=== PATIENT | male | born 1960 | race American Indian/Alaskan Native ===

== ENCOUNTER 2021-01-07 16:41 | Emergency (ER) | payer MEDICARE ==
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
[2021-01-07 18:21] VITALS: BP 173/91
== END 2021-01-07 18:20 | disposition home or self-care (01) ==
LOC: ED 16:41
DX: S16.1XXA Strain of muscle, fascia and tendon at neck level, initial encounter (principal); S39.012A Strain of muscle, fascia and tendon of lower back, initial encounter; S46.912A Strain of unspecified muscle, fascia and tendon at shoulder and upper arm level, left arm, initial encounter; I10 Essential (primary) hypertension; E11.8 Type 2 diabetes mellitus with unspecified complications; Z98.890 Other specified postprocedural states; Z88.0 Allergy status to penicillin; V79.88XA Bus occupant (driver) (passenger) injured in other specified transport accidents, initial encounter; Y92.488 Other paved roadways as the place of occurrence of the external cause; Y93.89 Activity, other specified; Y99.8 Other external cause status
CPT/HCPCS: 99282

== ENCOUNTER 2021-01-19 19:57 | Emergency (ER) | payer MEDICARE ==
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
--- NOTE | 2021-01-19 22:41 | XRay Report ---
Left elbow 4 views INDICATION: Pain FINDINGS: Prominent olecranon spurring. Radial head and neck appear normal. Distal humerus appears no rmal. No joint effusion is seen. No acute fracture. IMPRESSION: Prominent osteophyte and olecranon. No acute fracture. Signer Name: Bob Parks MD Signed: 01/19/2021 10:36 PM Workstation Name: [id number]
--- NOTE | 2021-01-19 23:06 | XRay Report ---
Right foot 3 views INDICATION: Foot pain FINDINGS: MTP joints and IP joints appear intact. Degenerative changes seen throughout. Diffuse soft tissue swelling along the dorsal and plantar aspect of the foot. Calcaneal spurring is noted. Advance d degenerative change of the talus and tibiotalar joint. IMPRESSION: Advanced degenerative change throughout the ankle and foot with diffuse soft tissue swelling. Clinica l correlation with examination and area of pain. Signer Name: Bob Parks MD Signed: 01/19/2021 11:02 PM Workstation Name: [id number]
[2021-01-20 01:09] VITALS: BP 132/70
== END 2021-01-20 01:09 | disposition home or self-care (01) ==
LOC: ED 19:57
DX: S90.32XA Contusion of left foot, initial encounter (principal); S50.02XA Contusion of left elbow, initial encounter; I10 Essential (primary) hypertension; E11.8 Type 2 diabetes mellitus with unspecified complications; E78.5 Hyperlipidemia, unspecified; Z98.890 Other specified postprocedural states; Z88.0 Allergy status to penicillin; V03.90XA Pedestrian on foot injured in collision with car, pick-up truck or van, unspecified whether traffic or nontraffic accident, initial encounter; Y93.01 Activity, walking, marching and hiking; Y92.488 Other paved roadways as the place of occurrence of the external cause; Y99.8 Other external cause status
CPT/HCPCS: 99283

== ENCOUNTER 2021-05-13 12:02 | Emergency (ER) | payer MEDICARE ==
[2021-05-13 12:18] VITALS: BP 136/73
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
== END 2021-05-13 13:17 | disposition home or self-care (01) ==
LOC: ED 12:02
DX: M79.669 Pain in unspecified lower leg (principal); I10 Essential (primary) hypertension; E11.9 Type 2 diabetes mellitus without complications; R56.9 Unspecified convulsions; Z98.890 Other specified postprocedural states
CPT/HCPCS: 99282

== ENCOUNTER 2021-07-16 05:20 | Emergency (ER) | payer MEDICARE ==
[2021-07-16 05:44] VITALS: BP 177/87
--- NOTE | 2021-07-16 10:47 | XRay Report ---
Lumbar spine 3 views INDICATION: Low back pain IMPRESSION: There is severe fracture deformity involving the L1 vertebral body with about 50-60% loss of height anteriorly. Signer Name: Donnie Aburto MD Signed: 07/16/2021 10:43 AM Workstation Name: [id number]
--- NOTE | 2021-07-16 10:55 | Emergency Department Report ---
<GUANAKO LOO - Last Filed: 07/16/21 11:17> ED Back Pain/Injury HPI - General Chief Complaint: Back Pain/Injury Stated Complaint: WORK INJURY BACK/LEG PAIN Time Seen by Provider: 07/16/21 10:10 Source: patient Limitations: No Limitations - History of Present Illness Initial Comments: Patient is a 61-year-old -[place], who looks much older than stated age, that comes to the emergency room complaining of low back pain and painful defecation after falling at work about 9 days ago. He states that he was throwing a heavy trash bag into a dumpster, lost his balance, fell to the ground landing on his knees. He has been njyo-fjr-buuia with his work about seeing the doctor. Today he experienced pain with defecation so he comes to the emergency room. Patient was ambulatory on arrival. He also endorses bilateral leg pain. Patient is known to the [facility], he states he gets medical benefits from them and is on disability due to going to what he calls a [employer]. Complaint: back pain - Related Data Previous Rx's Medication Instructions Recorded Last Taken Type Cyclobenzaprine [Flexeril] 10 mg PO TID PRN #10 07/16/21 Unknown Rx Docusate Sodium [Colace] 100 mg PO BID #30 capsule 07/16/21 Unknown Rx HYDROcodone/APAP 5-325 [[place] 1 - 2 each PO Q6HR PRN #20 tablet 07/16/21 Unknown Rx 5/325] Allergies Allergy/AdvReac Type Severity Reaction Status Date / Time ibuprofen AdvReac Unknown Verified 07/16/21 11:00 Penicillins AdvReac Swelling Verified 01/05/13 22:48 ED Review of Systems Comment: All other systems reviewed and negative ED Past Medical Hx - Past Medical History Previous Medical History?: Yes Hx Hypertension: Yes Hx Diabetes: Yes Hx Seizures: Yes Additional medical history: hyperlipidema - Surgical History Past Surgical History?: Yes Hx Appendectomy: Yes - Family History Family history: no significant - Social History Smoking Status: Never Smoker Substance Use Type: None - Medications Home Medications: Home Medications Medication Instructions Recorded Confirmed Last Taken Type Cyclobenzaprine [Flexeril] 10 mg PO TID PRN #10 07/16/21 Unknown Rx Docusate Sodium [Colace] 100 mg PO BID #30 capsule 07/16/21 Unknown Rx HYDROcodone/APAP 5-325 [[place] 1 - 2 each PO Q6HR PRN #20 tablet 07/16/21 Unknown Rx 5/325] ED Physical Exam - General Limitations: No Limitations General appearance: alert, in no apparent distress - Head Head exam: Present: atraumatic, normocephalic - Eye Eye exam: Present: normal appearance - ENT ENT exam: Present: mucous membranes moist - Neck Neck exam: Present: normal inspection - Respiratory Respiratory exam: Present: normal lung sounds bilaterally. Absent: respiratory distress - Cardiovascular Cardiovascular Exam: Present: regular rate, normal rhythm. Absent: systolic murmur, diastolic murmur, rubs, gallop - GI/Abdominal GI/Abdominal exam: Present: soft, normal bowel sounds - Extremities Exam Extremities exam: Present: other (Ambulatory) - Expanded Back Exam Expanded Back exam: Present: other (Pain on palpation over high lumbar spine) - Neurological Exam Neurological exam: Present: alert, oriented X3 - Psychiatric Psychiatric exam: Present: normal affect, normal mood - Skin Skin exam: Present: warm, dry, intact, normal color. Absent: rash ED Medical Decision Making - Radiology Data Radiology results: report reviewed, image reviewed See imaging notes - Medical Decision Making Vital Signs 07/16/21 05:27 Temperature 98.4 F Pulse Rate 73 Respiratory 18 Rate Blood Pressure 177/87 O2 Sat by Pulse 98 Oximetry Patient was initially seen in [facility]. He had tenderness over his high lumbar spine. I sent him for an x-ray. He has a fracture is noted. I have asked RN to place him on spinal precautions, put him in a stretcher, and I will have Dr. Gonzalez see him. Labs have been ordered. [place] 5 ordered for pain. [address] Gonzalez- he will see pt - Differential Diagnosis Rule out fracture ED Disposition Clinical Impression: Compression fracture of L1 lumbar vertebra Disposition: HOME / SELF CARE / HOMELESS Condition: Stable Instructions: Lumbar Spine Fracture Additional Instructions: Return to the emergency department should you develop worsening symptoms, inability to tolerate food or liquids, high fever or any other concerns Prescriptions: Docusate Sodium [Colace] 100 mg PO BID #30 capsule Cyclobenzaprine [Flexeril] 10 mg PO TID PRN #10 PRN Reason: Muscle Spasm HYDROcodone/APAP 5-325 [[place] 5/325] 1 - 2 each PO Q6HR PRN #20 tablet PRN Reason: Pain Referrals: COLLEEN SAWANT II, MD [Staff Physician] - 3-5 Days (Dr. Sawant is a neurosurgeon. Please follow-up with him for further evaluation) <FARHANJENNIFER Vilma - Last Filed: 07/16/21 13:37> ED Review of Systems ROS: Stated complaint: WORK INJURY BACK/LEG PAIN Other details as noted in HPI ED Course Vital Signs 07/16/21 05:27 Temperature 98.4 F Pulse Rate 73 Respiratory 18 Rate Blood Pressure 177/87 O2 Sat by Pulse 98 Oximetry - Consultations Consultation #1: 07/16/21 13:15 Neurosurgery paged 07/16/21 13:30 Case discussed with neurosurgeon Dr. Sawant-we will have someone contact patient about TLSO brace and have patient follow-up in office. ED Medical Decision Making - Lab Data Result diagrams: 07/16/21 11:23 07/16/21 11:23 Critical care attestation.: If time is entered above; I have spent that time in minutes in the direct care of this critically ill patient, excluding procedure time. ED Disposition Is pt being admited?: No Does the pt Need Aspirin: No Time of Disposition: 13:32
[2021-07-16] MEDS ORDERED: HYDROcodone/ACETAMINOPHEN 5-325 MG TAB PO ONE (11:09)
[2021-07-16 11:44] LABS: Hematocrit 38.3 % (35.5-45.6); Mean Corpuscular HGB Conc 31 % (32-34); Mean Corpuscular Volume 94 fl (84-94); Platelet Count 197 K/mm3 (140-440); Red Blood Count 4.06 M/mm3 (3.65-5.03); Red Cell Distribution Width 15.3 % (13.2-15.2)
[2021-07-16 11:55] LABS: INR 1.07 (0.87-1.13)
[2021-07-16 11:56] LABS: Partial Thromboplastin Time 28.5 Sec. (24.2-36.6)
[2021-07-16 12:03] LABS: Alanine Aminotransferase 10 units/L (7-56); Albumin 4.2 g/dL (3.9-5); BUN/Creatinine Ratio 13; Blood Urea Nitrogen 17 mg/dL (9-20); Calcium 8.6 mg/dL (8.4-10.2); Hemolysis Index 2
--- NOTE | 2021-07-16 12:18 | Cat Scan Report ---
CT cervical spine wo con, CT lumbar spine wo con, CT thoracic spine wo con INDICATION: BACK PAIN AFTER FALL . TECHNIQUE: Axial CT images of the cervical, thoracic, lumbar spine were obtained. Sagittal and coronal reformatt ed images were produced. All CT scans at this location are performed using CT dose reduction for ALAR A by means of automated exposure control. COMPARISON: None available. FINDINGS: ALIGNMENT: No traumatic listhesis. Normal alignment. VERTEBRAE: Cervical: No fracture. Vertebral body heights are preserved in the cervical spine. C1 and C2 are deandra ruent. Thoracic: Chronic anterior wedging of the mid thoracic vertebral bodies. No acute thoracic vertebral body height loss. No fracture identified within the thoracic spine. Lumbar: L1 compression fracture with approximately 70% central vertebral body height loss. There is a fracture line seen underlying the right superior endplate and extending to the right lateral cortex. The fracture line contains gas and gas is also seen within the intervertebral disc space. Sclerosis of vertebral body is present. SPONDYLOSIS: Mild multilevel spondylosis involving the cervical, thoracic, and lumbar spine. No high- grade osseous spinal canal foraminal stenosis. Advanced L5-S1 facet arthropathy. SOFT TISSUES: No significant soft tissue abnormality. ADDITIONAL FINDINGS: No significant additional findings. IMPRESSION: 1. 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 2. No cervical or thoracic spine fracture. Signer Name: Sourav Arana MD Signed: 07/16/2021 12:14 PM Workstation Name: [id number]
== END 2021-07-16 14:27 | disposition home or self-care (01) ==
LOC: ED 05:20
DX: S32.019A Unspecified fracture of first lumbar vertebra, initial encounter for closed fracture (principal); Z88.6 Allergy status to analgesic agent; Z88.0 Allergy status to penicillin; I10 Essential (primary) hypertension; E11.9 Type 2 diabetes mellitus without complications; Z90.89 Acquired absence of other organs; X58.XXXA Exposure to other specified factors, initial encounter; Y93.89 Activity, other specified; Y92.89 Other specified places as the place of occurrence of the external cause; Y99.8 Other external cause status
CPT/HCPCS: 36415; 72100; 72125; 72128; 72131; 80053; 85027; 85610; 85730; 99284